=== PATIENT | male | born 1995 | race Caucasian/White ===

== ENCOUNTER 2018-07-12 16:23 | Emergency (ER) | payer MEDICAID ==
[~2018-07-12] VITALS: Ht 170.2 cm; Wt 90.0 kg
[~2018-07-12 16:23] MED LIST: ALBU6.7H INH; METO-293 PO; SULF1TAB48 PO
[2018-07-12] MEDS ORDERED: IBUPROFEN 400MG TABLET PO ONE (19:00)
[2018-07-12 20:19] VITALS: BP 122/83
== END 2018-07-12 20:23 | disposition home or self-care (01) ==
LOC: ER 16:23
DX: S93.491A Sprain of other ligament of right ankle, initial encounter (principal); F12.10 Cannabis abuse, uncomplicated; X50.1XXA Overexertion from prolonged static or awkward postures, initial encounter; Y93.89 Activity, other specified; Y92.89 Other specified places as the place of occurrence of the external cause; Y99.8 Other external cause status; Z79.899 Other long term (current) drug therapy
CPT/HCPCS: 73610; 99284

== ENCOUNTER 2018-12-27 23:49 | Emergency (ER) | payer MEDICAID, OTHER ==
[~2018-12-27] VITALS: Ht 172.7 cm; Wt 91.0 kg
[2018-12-28 04:19] VITALS: BP 102/62
== END 2018-12-28 04:19 | disposition home or self-care (01) ==
LOC: ER 23:49
DX: S16.1XXA Strain of muscle, fascia and tendon at neck level, initial encounter (principal); M60.9 Myositis, unspecified; F12.10 Cannabis abuse, uncomplicated; V43.52XA Car driver injured in collision with other type car in traffic accident, initial encounter; Y93.89 Activity, other specified; Y92.488 Other paved roadways as the place of occurrence of the external cause
CPT/HCPCS: 99283